=== PATIENT | female | born 1960 | race Hispanic/Latino ===

== ENCOUNTER 2020-01-01 13:39 | Emergency (ER) | payer OTHER ==
[2020-01-01] MEDS ORDERED: ACETAMINOPHEN 500 MG TAB ONE (15:34)
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
[2020-01-01 17:45] VITALS: BP 122/86; TEMP 98.9; O2SAT 99
== END 2020-01-01 17:27 | disposition home or self-care (01) ==
LOC: ER 13:39
DX: R07.9 Chest pain, unspecified (principal); V49.50XA Passenger injured in collision with unspecified motor vehicles in traffic accident, initial encounter
CPT/HCPCS: 71046; 99283